=== PATIENT | female | born 1990 | race Caucasian/White ===

== ENCOUNTER 2016-09-04 03:12 | Emergency (ER) | payer OTHER ==
[2016-09-04 03:45] VITALS: TEMP 97.9; BMI 21.9
--- NOTE | 2016-09-04 03:56 | PDOC ---
History of Present Illness - History of Present Illness Initial Comments: 09/04/16 06:01 The patient is a 25 year old female with a PMHx of profound MR, convulsive epilepsy, scoliosis, esophagitis who presents to the ED sent from [facility] for possible obstruction. Patient complained of abdominal pain. Vaccines are UTD, vitals were normal. No fever. <Yeimy Lawson - Last Filed: 09/04/16 06:01> <Eloisa Montesinos - Last Filed: 09/04/16 07:09> <Mickie Robles - Last Filed: 09/04/16 11:58> - General Chief Complaint: Pain, Acute Stated Complaint: PAIN Time Seen by Provider: 09/04/16 03:55 Past History <Yeimy Lawson - Last Filed: 09/04/16 06:01> - Past Medical History GI Disorders: Yes (GERD) Seizures: Yes - Psycho/Social/Smoking Cessation Hx Suicidal Ideation: No Smoking Status: No Smoking History: Never smoked Have you smoked in the past 12 months: No Number of Cigarettes Smoked Daily: 0 Information on smoking cessation initiated: No Hx Alcohol Use: No Drug/Substance Use Hx: No <Eloisa Montesinos - Last Filed: 09/04/16 07:09> <Mickie Robles - Last Filed: 09/04/16 11:58> - Past Medical History Allergies/Adverse Reactions: Allergies Allergy/AdvReac Type Severity Reaction Status Date / Time lactose Allergy Verified 09/04/16 08:40 Home Medications: Ambulatory Orders Calcium Carbonate/Vitamin D3 [Oystercal-D 500 mg-400 Unit Tb] 1 each PO DAILY Carbamazepine [Carbamazepine ER] 200 mg PO BID 09/04/16 Carbamazepine [Carbamazepine ER] 300 mg PO BID 09/04/16 Cholecalciferol (Vitamin D3) [Vitamin D3] 2,000 unit PO DAILY 09/04/16 Clotrimazole [Lotrimin 1% Solution -] 1 applic TP BID 09/04/16 Diazepam [Diastat Acudial] 1 each RC PRN PRN 09/04/16 Docusate Calcium 300 mg PO DAILY 09/04/16 Fructooligosaccharides/Polydex [Fiber-Stat 15 gm/30 ml Liquid] 15 gm PO DAILY 02 /25/17 Lactulose 10 gm PO DAILY 09/04/16 Multivitamin with Iron [Daily Pat with Iron] 1 each PO DAILY 09/04/16 Ranitidine [Zantac -] 150 mg PO BID 09/04/16 Sennosides [Senna Concentrate] 25.8 mg PO HS 09/04/16 Simethicone [Gas Relief] 40 mg PO TID 09/04/16 Topiramate [Topiramate ER] 50 mg PO BID 09/04/16 Review of Systems - Review of Systems Able to Perform ROS?: No (MR) <RennyYeimy A - Last Filed: 09/04/16 06:01> *Physical Exam - Vital Signs Last Vital Signs Temp Pulse Resp BP Pulse Ox 97.9 F 98 H 18 126/74 100 09/04/16 03:43 09/04/16 03:43 09/04/16 03:43 09/04/16 03:43 09/04/16 03:43 - Physical Exam Comments: 09/04/16 06:01 GENERAL: Awake, alert, and fully oriented, in no acute distress HEAD: No signs of trauma EYES: PERRLA, EOMI, sclera anicteric, conjunctiva clear ENT: Auricles normal inspection, hearing grossly normal, nares patent, oropharynx clear without exudates. Moist mucosa NECK: Normal ROM, supple, no lymphadenopathy, JVD, or masses LUNGS: Breath sounds equal, clear to auscultation bilaterally. No wheezes, and no crackles HEART: Tachycardic rate and regular rhythm, normal S1 and S2, no murmurs, rubs or gallops ABDOMEN: Soft, nontender, normoactive bowel sounds. No guarding, no rebound. No masses EXTREMITIES: Normal range of motion, no edema. No clubbing or cyanosis. No cords, erythema, or tenderness NEUROLOGICAL: Cranial nerves II through XII grossly intact. Normal speech, normal gait SKIN: Warm, Dry, normal turgor, no rashes or lesions noted. <Yeimy Lawson - Last Filed: 09/04/16 06:01> - Vital Signs Last Vital Signs Temp Pulse Resp BP Pulse Ox 97.9 F 98 H 18 126/74 100 09/04/16 03:43 09/04/16 03:43 09/04/16 03:43 09/04/16 03:43 09/04/16 03:43 <Eloisa Montesinos - Last Filed: 09/04/16 07:09> - Vital Signs Last Vital Signs Temp Pulse Resp BP Pulse Ox 97.9 F 98 H 18 126/74 100 09/04/16 03:43 09/04/16 03:43 09/04/16 03:43 09/04/16 03:43 09/04/16 03:43 <Mickie Robles - Last Filed: 09/04/16 11:58> ED Treatment Course - LABORATORY CBC & Chemistry Diagram: 09/04/16 09:22 09/04/16 09:22 <Mickie Robles - Last Filed: 09/04/16 11:58> Medical Decision Making - Medical Decision Making 09/04/16 07:09 Pt comes with questionable ileus on an XRAY done at the [facility]. Pt has a normal exam. We are awaiting CT abd/pelvis results. Pt will be signed out to the AM ER doc who will send patient home if her CT is normal. <Eloisa Montesinos - Last Filed: 09/04/16 07:09> - Medical Decision Making 09/04/16 08:48 Exam is very limited as pt has profound MR. Pt is awake and alert. does not appear in distress, smiling at policy writer sales, aide with pt reports no recent vomitting since yesterday. Pt had an xray done at her facility due to vomitting that showed questionable ileus as per Dr Montesinos. Ct done to r/o ileus. No ileus or obstruction noted on ct. Pt is afebrile labs stable, pt stable for dc back to residential facility. 09/04/16 11:57 <Mickie Robles - Last Filed: 09/04/16 11:58> *DC/Admit/Observation/Transfer - Attestations Scribe Attestion: 09/04/16 06:01 Documentation prepared by Yeimy Lawson, acting as medical bill processor for Eloisa Montesinos MD. <Yeimy Lawson - Last Filed: 09/04/16 06:01> <Eloisa Montesinos - Last Filed: 09/04/16 07:09> - Discharge Dispostion Admit: No <Mickie Robles - Last Filed: 09/04/16 11:58> Diagnosis at time of Disposition: Nausea & vomiting - Discharge Dispostion Disposition: HOME Condition at time of disposition: Stable - Patient Instructions Additional Instructions: return to ed for abdominal pain, nausea and vomiting or as needed. Pt to f/u with [facility] in next 24-72hrs
[2016-09-04 09:37] LABS: BASOPHIL 0.5 % (0-2.0); EOSINOPHIL 0.8 % (0-4.5); MCH 30.5 pg (25.7-33.7); MCHC 34.7 g/dl (32.0-36.0); MEAN PLT VOLUME 11.7 fl (7.5-11.1); NEUTROPHILS 75.1 % (42.8-82.8); PLATELET COUNT 218 K/MM3 (134-434); RDW 12.4 % (11.6-15.6); WHITE BLOOD COUNT 10.7 K/mm3 (4.0-10.0)
[2016-09-04 10:03] LABS: ALK PHOS 129 U/L (45-117); ANION GAP 11 (8-16); BILIRUBIN,TOTAL 0.5 mg/dL (0.2-1.0); CALCIUM 9.1 mg/dL (8.5-10.1); CO2 22 mmol/L (21-32); CREATININE 0.5 mg/dL (0.55-1.02); GLUCOSE,RANDOM 81 mg/dL (74-106); SGOT/AST 24 U/L (15-37); SGPT/ALT 30 U/L (12-78); TOT PROT 7.8 g/dl (6.4-8.2)
[2016-09-04 12:36] VITALS: BP 110/67; PULSE 82
== END 2016-09-04 12:36 | disposition home or self-care (01) ==
LOC: JER 03:12
DX: R11.2 Nausea with vomiting, unspecified (principal); F73 Profound intellectual disabilities; G40.909 Epilepsy, unspecified, not intractable, without status epilepticus; K20.8 Other esophagitis; M41.80 Other forms of scoliosis, site unspecified
CPT/HCPCS: 36415; 74176-TC; 80053; 85025; 99282-25

== ENCOUNTER 2017-12-12 17:17 | Emergency (ER) | payer OTHER ==
--- NOTE | 2017-12-12 18:06 | PDOC ---
Rapid Medical Evaluation Time Seen by Provider: 12/12/17 17:58 Medical Evaluation: Allergies Allergy/AdvReac Type Severity Reaction Status Date / Time lactose Allergy Verified 12/12/17 17:58 12/12/17 18:01 I have performed a brief in-person evaluation of this patient. The patient presents with a chief complaint of: comes from [facility], Severe MR, seizure ( wheelchair bound) concerned about discoloration to both feet- cool and mottled first today. DSP ( [employer]) who works with patient did not reconize any changes with feet Tuesday. Pertinent physical exam findings: pale/ purple/ mottled / bilateral feet, up to ankles , unable to palp pulses. . uncertain start time. I have ordered the following: duplex arterial bilateral The patient will proceed to the ED for further evaluation. 12/12/17 18:10
[2017-12-12 18:14] VITALS: BP 140/64; PULSE 90; BMI 15.5
--- NOTE | 2017-12-12 20:17 | PDOC ---
History of Present Illness - General History Source: Care Provider, Old Records Exam Limitations: Clinical Condition - History of Present Illness Initial Comments: 12/12/17 20:22 The patient is a 27 year old female, a [facility] resident, wheel-chair bound, with a significant PMH profound mental retardation, Rett syndrome, epilepsy, scoliosis who presents to the emergency department with extreme purple discoloration and mild edema to both feet. Feet are cold to touch. History limited secondary to medical conditions as noted above. Allergies: lactose Past surgical history: spinal fusion Achilles tendon lengthening <Cora Teran - Last Filed: 12/12/17 22:25> <Jeannine Chavez - Last Filed: 12/12/17 22:37> - General Chief Complaint: Edema Stated Complaint: BILATERAL LEG DISCOLORATION Time Seen by Provider: 12/12/17 17:58 Past History <Cora Teran - Last Filed: 12/12/17 22:25> - Past Medical History COPD: No Dementia: Yes (Profound mental retardation) GI Disorders: Yes (GERD) Seizures: Yes - Immunization History Immunization Up to Date: Yes - Suicide/Smoking/Psychosocial Hx Smoking Status: No Smoking History: Never smoked Have you smoked in the past 12 months: No Number of Cigarettes Smoked Daily: 0 Hx Alcohol Use: No Drug/Substance Use Hx: No Substance Use Type: None <Jeannine Chavez - Last Filed: 12/12/17 22:37> - Past Medical History Allergies/Adverse Reactions: Allergies Allergy/AdvReac Type Severity Reaction Status Date / Time lactose Allergy Verified 12/12/17 17:58 Review of Systems - Review of Systems Able to Perform ROS?: Yes Comments:: 12/12/17 20:21 CONSTITUTIONAL: Absent: fever, no chills, no fatigue EYES: Absent: visual changes ENT: Absent: ear pain, no sore throat CARDIOVASCULAR: Absent: chest pain, no palpitations RESPIRATORY: Absent: cough, no SOB GI: Absent: abdominal pain, no nausea, no vomiting, no constipation, no diarrhea GENITOURINARY: Absent: dysuria, no frequency, no hematuria MUSKULOSKELETAL: Absent: back pain, no arthralgia, no myalgia Present: Bilateral feet discoloration. SKIN: Absent: rash NEURO: Absent: headache <Cora Teran - Last Filed: 12/12/17 22:25> *Physical Exam - Vital Signs Last Vital Signs Temp Pulse Resp BP Pulse Ox 90 20 140/64 95 12/12/17 17:58 12/12/17 17:58 12/12/17 17:58 12/12/17 17:58 - Physical Exam Comments: 12/12/17 20:20 GENERAL: (+) Alert but non-verbal and non-ambulatory. (+) Petite and thin. (+) Wheel- chair bound. HEENT: Normocephalic, atraumatic. PERRL, EOM intact. CARDIOVASCULAR: Normal S1, S2. Regular rate and rhythm. PULMONARY: Clear to auscultation bilaterally. ABDOMEN: (+) protuberant abdomen. Soft, non-tender. EXTREMITIES: Normal ROM in all four extremities. (+) Extreme erythema to the bilateral feet. DP pulses. SKIN: Warm, dry. (+) Calculus on the digits of her hands. NEUROLOGICAL: No focal neurological deficits. <Cora Teran - Last Filed: 12/12/17 22:25> - Vital Signs Last Vital Signs Temp Pulse Resp BP Pulse Ox 90 20 140/64 95 12/12/17 17:58 12/12/17 17:58 12/12/17 17:58 12/12/17 17:58 <Jeannine Chavez - Last Filed: 12/12/17 22:37> Medical Decision Making - Medical Decision Making 12/12/17 22:08 Imaging: Lower extremities US Reported by: Dr. Shearer Impression: No evidence of occlusions or hemodynamically significant stenoses. <Cora Teran - Last Filed: 12/12/17 22:25> - Medical Decision Making 12/12/17 20:17 Concern for vascular occlusion in this 27-year-old female who presents with cold left foot in extreme purple discoloration to both feet with minimal edema. We'll assess his circulatory insufficiency. Arterial Dopplers pending. Patient resides at [facility]. Past medical history for profound mental retardation, Rett syndrome, epilepsy, scoliosis. Past surgical history spinal fusion Achilles tendon lengthening. 27-year-old female, small stature seated in wheelchair. She does not appear to be agitated and she was reading her hands and mouthing her fingers. Lungs are clear to auscultation. CVS regular rate and rhythm. Abdomen protuberant Extremities both feet are erythematous and cool. Neurologically she is alert, nonverbal, nonambulatory 12/12/17 22:31 Duplex arterial Doppler of lower extremities is negative for any occlusions i SPOKE with Vascular surgeon, Dr. Lencho Rasheed and he has seen this in people who have some autonomic insufficiency and there is no intervention requires -if there were some ulcerations or skin breakdown then these would need treatment but she has none of these Impression skin changes due to autonomic insufficiency, no evidence of arterial occlusions or stenosis. Plan discharge back to [facility] <Jeannine Chavez - Last Filed: 12/12/17 22:37> *DC/Admit/Observation/Transfer - Attestations Scribe Attestion: 12/12/17 20:21 Documentation prepared by Cora Teran, acting as medical record specialist for Jeannine Chavez MD. <Cora Teran - Last Filed: 12/12/17 22:25> <Jeannine Chavez - Last Filed: 12/12/17 22:37> Diagnosis at time of Disposition: Skin abnormalities - Discharge Dispostion Disposition: HOME Condition at time of disposition: Stable - Referrals Referrals: Lencho Rasheed MD [Staff Physician] - - Patient Instructions Printed Discharge Instructions: DI for Peripheral Edema, Unilateral
== END 2017-12-13 00:59 | disposition home or self-care (01) ==
LOC: JER 17:17
DX: L98.8 Other specified disorders of the skin and subcutaneous tissue (principal); F73 Profound intellectual disabilities; F84.2 Rett's syndrome; G40.909 Epilepsy, unspecified, not intractable, without status epilepticus; M41.9 Scoliosis, unspecified; Z99.3 Dependence on wheelchair
CPT/HCPCS: 93925-TC; 99281-25

== ENCOUNTER 2023-12-08 12:07 | Emergency (ER) | payer OTHER ==
[2023-12-08 12:24] VITALS: BP 110/78; PULSE 98; RESP 18; TEMP 97.9; BMI 19.5
[2023-12-08 14:01] LABS: BASO % 0.7 % (0-2.0); HEMATOCRIT 45.8 % (32.4-45.2); HEMOGLOBIN 16.1 GM/dL (10.7-15.3); LYMPH % 20.3 % (8-40); MCH 30.4 pg (25.7-33.7); MCHC 35.1 g/dl (32.0-36.0); MEAN CELL VOLUME 86.7 fl (80-96); MEAN PLT VOLUME 11.4 fl (7.5-11.1); MONO % 10.4 % (3.8-10.2); NEUT % 67.6 % (42.8-82.8); PLATELET COUNT 196 10^3/uL (134-434); RBC 5.28 M/mm3 (3.60-5.2); RDW 13.2 % (11.6-15.6); WHITE BLOOD COUNT 8.3 K/mm3 (4.0-10.0)
[2023-12-08 14:09] LABS: INR 0.93 (0.83-1.09); PROTHROMBIN TIME (PATIENT) 10.5 SEC (9.7-13.0)
[2023-12-08 14:12] LABS: ACTIVATED PTT 32.3 SECONDS (25.2-36.5)
[2023-12-08 14:28] LABS: POTASSIUM 3.9 mmol/L (3.5-5.1)
[2023-12-08 14:31] LABS: ALBUMIN 3.8 g/dl (3.4-5.0); BLOOD UREA NITROGEN 12.8 mg/dL (7-18); MAGNESIUM 2.5 mg/dL (1.8-2.4)
[2023-12-08 14:35] LABS: CREATININE 0.5 mg/dL (0.55-1.3)
[2023-12-08 14:36] LABS: BILIRUBIN,TOTAL 0.6 mg/dL (0.2-1); TOT PROT 7.1 g/dl (6.4-8.2)
[2023-12-08] MEDS: SODIUM CHLORIDE 0.9% 500 ML INFUS.BAG IV ONE (17:38)
[2023-12-08 18:17] LABS: EPI CELLS >36 /uL (0-25.1); HYALINE CASTS 1 /uL (0-3.1); PH,URINE 8.5 (5.0-8.0); URINE APPEARANCE CLOUDY; URINE BILIRUBIN NEGATIVE (NEGATIVE); URINE COLOR YELLOW; URINE GLUCOSE (UA) NEGATIVE (NEGATIVE); URINE KETONE TRACE (NEGATIVE); URINE LEUK ESTERASE NEGATIVE (NEGATIVE); URINE NITRITE NEGATIVE (NEGATIVE); URINE PROTEIN 1+ (NEGATIVE); URINE RBC 437 /uL (0-23.9); URINE WBC 40 /uL (0-25.8)
[2023-12-08 20:21] LABS: URINE BACTERIA 184.2 /uL (0-1359)
== END 2023-12-08 19:55 | disposition home or self-care (01) ==
LOC: JER 12:07
DX: Z04.3 Encounter for examination and observation following other accident (principal); W19.XXXA Unspecified fall, initial encounter
CPT/HCPCS: 36415; 70450-TC; 71045-TC-FY; 72125-TC; 72170-TC-FY; 80053; 81003; 83735; 84484; 84703; 85025; 85610; 85730; 86850; 86900; 86901; 87086; 93005; 93010; 99285-25

== ENCOUNTER 2024-03-29 13:47 | Emergency (ER) | payer OTHER ==
[2024-03-29 14:41] VITALS: BMI 19.2
[2024-03-29] MEDS: SODIUM CHLORIDE 1,000 ML IV SCH (18:45)
[2024-03-29 18:53] VITALS: BP 108/69; PULSE 70; RESP 20; TEMP 98.2
[2024-03-30] MEDS ORDERED: ENOXAPARIN NA (PORCINE) 40 MG/0.4 ML DISP.SYRIN SQ SCH (10:00)
== END 2024-03-29 19:49 ==
LOC: JER 13:47
PROC: 0D20XUZ Change Feeding Device in Upper Intestinal Tract, External Approach (ICD-10-PCS; principal; 2024-03-29)
DX: K94.23 Gastrostomy malfunction (principal)
CPT/HCPCS: 49440; 82962; 99282-25

== ENCOUNTER 2024-09-23 18:38 | Inpatient (IN) | payer OTHER ==
[2024-09-23] MEDS ORDERED: ACETAMINOPHEN INJECTION 100 ML ONE (19:20)
[2024-09-23] MEDS ORDERED: PIPERACILLIN/TAZOB 4.5 GM 4.5 GM in DEXTROSE 5%-WATER 100 ML IVPB ONE (19:21)
[2024-09-23] MEDS: SODIUM CHLORIDE 0.9% 500 ML INFUS.BAG IV ONE ×2 (19:44→21:05)
[2024-09-23] MEDS: ACETAMINOPHEN 1000 MG/100 ML BAG IVPB ONE (19:44)
[2024-09-23] MEDS ORDERED: PIPERACILLIN/TAZOB 3.375 GM 3.375 GM/50 ML BAG IVPB ONE (19:50)
[2024-09-23 19:51] LABS: BASO % 0.1 % (0-2.0); EOS % 0.7 % (0-4.5); HEMATOCRIT 41.1 % (32.4-45.2); HEMOGLOBIN 14.2 GM/dL (10.7-15.3); MCH 30.7 pg (25.7-33.7); MCHC 34.4 g/dl (32.0-36.0); MEAN CELL VOLUME 89.2 fl (80-96); MEAN PLT VOLUME 10.5 fl (7.5-11.1); MONO % 10.8 % (3.8-10.2); NEUT % 85.4 % (42.8-82.8); PLATELET COUNT 156 10^3/uL (134-434); RBC 4.61 M/mm3 (3.60-5.2); RDW 12.8 % (11.6-15.6); VENOUS BASE EXCESS -3.9 mmol/L (-2-2); VENOUS O2 SATURATION 91.6 % (70-80); VENOUS PH 7.432 (7.310-7.410); WHITE BLOOD COUNT 16.1 K/mm3 (4.0-10.0)
[2024-09-23 19:58] LABS: INR 1.11 (0.83-1.09); PROTHROMBIN TIME (PATIENT) 12.2 SEC (9.7-13.0)
[2024-09-23 20:01] LABS: ACTIVATED PTT 28.3 SECONDS (25.2-36.5)
[2024-09-23] MEDS: PIPERACILLIN/TAZOB 3.375 GM 3.375 GM in DEXTROSE 5%-WATER - 50 ML IVPB ONE (20:02)
[2024-09-23] MEDS ORDERED: VANCOMYCIN 1 GM PREMIX (F) 1 GM/200 ML BAG ONE (20:06)
[2024-09-23 20:11] LABS: POTASSIUM 3.5 mmol/L (3.5-5.1)
[2024-09-23 20:13] LABS: BLOOD UREA NITROGEN 15.5 mg/dL (7-18); CALCIUM 8.7 mg/dL (8.5-10.1)
[2024-09-23 20:17] LABS: CREATININE 0.7 mg/dL (0.55-1.3)
[2024-09-23 20:18] LABS: BILIRUBIN,TOTAL 0.8 mg/dL (0.2-1); TOT PROT 6.7 g/dl (6.4-8.2)
[2024-09-23 20:21] LABS: EPI CELLS 16 /uL (0-25.1); HYALINE CASTS 2 /uL (0-3.1); URINE APPEARANCE TURBID; URINE BACTERIA >9,000 /uL (0-1359); URINE BILIRUBIN NEGATIVE (NEGATIVE); URINE COLOR DK YELLOW; URINE GLUCOSE (UA) 3+ (NEGATIVE); URINE KETONE TRACE (NEGATIVE); URINE LEUK ESTERASE 3+ (NEGATIVE); URINE NITRITE POSITIVE (NEGATIVE); URINE PROTEIN 2+ (NEGATIVE); URINE WBC 2263 /uL (0-25.8)
[2024-09-23] MEDS: VANCOMYCIN 1,000 MG in DEXTROSE 5%-WATER - 250 ML IVPB ONE (20:29)
[2024-09-23 20:38] LABS: ALBUMIN 3.3 g/dl (3.4-5.0); LACTIC ACID 2.7 mmol/L (0.4-2.0)
[2024-09-23] MEDS: LACTATED RINGERS SOLUTION 1,000 ML IV STA (22:30)
[2024-09-23] MEDS ORDERED: MAG HYDROX/AL HYDROX/SIMETH 30 ML UNIT-DOSE CUP GT PRN (23:50)
[2024-09-24] MEDS: PIPERACILLIN/TAZOB 3.375 GM 3.375 GM in DEXTROSE 5%-WATER - 50 ML IVPB SCH (04:16)
[2024-09-24] MEDS: LACTATED RINGERS SOLUTION 1,000 ML/1,000 ML INFUS.BAG IV SCH (04:16)
[2024-09-24] MEDS ORDERED: SIMETHICONE 40 MG/0.6 ML BOTTLE GT PRN (04:48)
[2024-09-24] MEDS ORDERED: ACETAMINOPHEN 1000 MG/100 ML BAG IVPB PRN (04:49)
[2024-09-24 08:45] LABS: HEMATOCRIT 32.5 % (32.4-45.2); HEMOGLOBIN 10.8 GM/dL (10.7-15.3); MCH 30.7 pg (25.7-33.7); MCHC 33.2 g/dl (32.0-36.0); MEAN CELL VOLUME 92.5 fl (80-96); MEAN PLT VOLUME 10.7 fl (7.5-11.1); PLATELET COUNT 125 10^3/uL (134-434); RBC 3.51 M/mm3 (3.60-5.2); RDW 13.3 % (11.6-15.6); WHITE BLOOD COUNT 12.4 K/mm3 (4.0-10.0)
[2024-09-24 09:05] LABS: POTASSIUM 3.7 mmol/L (3.5-5.1)
[2024-09-24 09:11] LABS: BLOOD UREA NITROGEN 9.6 mg/dL (7-18); MAGNESIUM 2.4 mg/dL (1.8-2.4)
[2024-09-24 09:13] LABS: ALBUMIN 2.5 g/dl (3.4-5.0); CALCIUM 7.2 mg/dL (8.5-10.1)
[2024-09-24 09:14] LABS: BILIRUBIN,TOTAL 0.8 mg/dL (0.2-1); CREATININE 0.5 mg/dL (0.55-1.3); PHOSPHOROUS 1.8 mg/dL (2.5-4.9)
[2024-09-24 09:15] LABS: TOT PROT 5.2 g/dl (6.4-8.2)
[2024-09-24] MEDS: ENOXAPARIN NA (PORCINE) 40 MG/0.4 ML DISP.SYRIN SQ SCH (09:33)
[2024-09-24] MEDS: DOCUSATE NA 100 MG/10 ML UNIT-DOSE CUPS GT SCH (09:34)
[2024-09-24] MEDS: cloBAZam 10 MG TABLET GT SCH (09:34)
[2024-09-24] MEDS: POLYETHYLENE GLYCOL (HEALTHYLAX) 3350 17 GM PACKET GT SCH (09:34)
[2024-09-24] MEDS ORDERED: CEFTRIAXONE 1 G/50 ML PREMIX 50 ML IVPB SCH (10:00)
[2024-09-24 12:27] VITALS: BMI 15.2
[2024-09-24] MEDS ORDERED: VANCOMYCIN ORAL SOLUTION 125 MG/2.5 ML PO SCH (13:00)
[2024-09-24] MEDS: VANCOMYCIN ORAL SOLUTION 125 MG/2.5 ML GT SCH (13:11)
[2024-09-24] MEDS: MINERAL OIL/PET HY-PHL TOPICAL OINTMENT 454 GM JAR TP SCH (14:25)
[2024-09-24] MEDS: PIPERACILLIN/TAZOB 3.375 GM 50 ML IVPB SCH (17:48)
[2024-09-24] MEDS: SENNOSIDES 8.8 MG/5 ML SYRUP GT SCH (22:56)
[2024-09-24] MEDS: TOPIRAMATE 25 MG TABLET GT SCH (22:58)
[2024-09-24] MEDS: NAPH,MB-DB/K PH,MBDB POWDER PACKET PO SCH (22:58)
[2024-09-25 12:06] LABS: POTASSIUM 3.3 mmol/L (3.5-5.1)
[2024-09-25 12:09] LABS: ALBUMIN 2.5 g/dl (3.4-5.0); BLOOD UREA NITROGEN 9.4 mg/dL (7-18)
[2024-09-25 12:11] LABS: CALCIUM 8.5 mg/dL (8.5-10.1)
[2024-09-25 12:12] LABS: PHOSPHOROUS 1.8 mg/dL (2.5-4.9)
[2024-09-25 12:13] LABS: CREATININE 0.4 mg/dL (0.55-1.3)
[2024-09-25 12:14] LABS: BILIRUBIN,TOTAL 0.5 mg/dL (0.2-1); TOT PROT 5.6 g/dl (6.4-8.2)
[2024-09-25 12:19] LABS: BASO % 0.2 % (0-2.0); EOS % 0.6 % (0-4.5); HEMATOCRIT 35.2 % (32.4-45.2); HEMOGLOBIN 12.5 GM/dL (10.7-15.3); LYMPH % 10.1 % (8-40); MCH 31.7 pg (25.7-33.7); MCHC 35.6 g/dl (32.0-36.0); MEAN CELL VOLUME 89.1 fl (80-96); MEAN PLT VOLUME 11.3 fl (7.5-11.1); MONO % 15.6 % (3.8-10.2); NEUT % 73.5 % (42.8-82.8); PLATELET COUNT 141 10^3/uL (134-434); RBC 3.95 M/mm3 (3.60-5.2); WHITE BLOOD COUNT 8.8 K/mm3 (4.0-10.0)
[2024-09-26] MEDS ORDERED: PIPERACILLIN/TAZOB 3.375 GM 50 ML IVPB SCH (03:00)
[2024-09-26 09:50] LABS: POTASSIUM 3.6 mmol/L (3.5-5.1)
[2024-09-26 10:09] LABS: ALBUMIN 2.6 g/dl (3.4-5.0); BLOOD UREA NITROGEN 10.4 mg/dL (7-18); CALCIUM 8.9 mg/dL (8.5-10.1); MAGNESIUM 1.6 mg/dL (1.8-2.4)
[2024-09-26 10:12] LABS: CREATININE 0.4 mg/dL (0.55-1.3); PHOSPHOROUS 4.2 mg/dL (2.5-4.9)
[2024-09-26 10:14] LABS: BILIRUBIN,TOTAL 0.4 mg/dL (0.2-1); TOT PROT 5.9 g/dl (6.4-8.2)
[2024-09-26] MEDS: MAGNESIUM SULFATE IN WATER 2 GM/50 ML IVPB IVPB ONE (13:06)
[2024-09-27 08:54] LABS: POTASSIUM 3.7 mmol/L (3.5-5.1)
[2024-09-27 09:02] LABS: CALCIUM 9.1 mg/dL (8.5-10.1)
[2024-09-27 09:03] LABS: ALBUMIN 2.7 g/dl (3.4-5.0); BLOOD UREA NITROGEN 15.6 mg/dL (7-18); MAGNESIUM 1.9 mg/dL (1.8-2.4)
[2024-09-27 09:04] LABS: BILIRUBIN,TOTAL 0.3 mg/dL (0.2-1)
[2024-09-27 09:06] LABS: CREATININE 0.5 mg/dL (0.55-1.3); PHOSPHOROUS 4.4 mg/dL (2.5-4.9)
[2024-09-27 09:07] LABS: TOT PROT 6.2 g/dl (6.4-8.2)
[2024-09-27] MEDS: NAPH,MB-DB/K PH,MBDB POWDER PACKET GT SCH (09:49)
[2024-09-27] MEDS: CEFTRIAXONE 2 GM-D5W BAG 2 GM/50 ML BAG IVPB SCH (15:45)
[2024-09-28 09:48] LABS: POTASSIUM 3.4 mmol/L (3.5-5.1)
[2024-09-28 09:56] LABS: CALCIUM 9.6 mg/dL (8.5-10.1)
[2024-09-28 09:57] LABS: BLOOD UREA NITROGEN 18.9 mg/dL (7-18)
[2024-09-28 09:59] LABS: CREATININE 0.4 mg/dL (0.55-1.3); PHOSPHOROUS 2.9 mg/dL (2.5-4.9)
[2024-09-28 10:00] LABS: BILIRUBIN,TOTAL 0.3 mg/dL (0.2-1)
[2024-09-28 10:01] LABS: TOT PROT 6.9 g/dl (6.4-8.2)
[2024-09-28] MEDS: TUBE FEED DECLOGGING SOLUTION 12,000 UNITS GT ONE (10:09)
[2024-09-28] MEDS: POTASSIUM CHLORIDE ORAL LIQUID 20 MEQ/15 ML GT ONE (10:31)
[2024-09-29 09:13] LABS: POTASSIUM 3.7 mmol/L (3.5-5.1)
[2024-09-29 09:31] LABS: CALCIUM 9.7 mg/dL (8.5-10.1)
[2024-09-29 09:32] LABS: BLOOD UREA NITROGEN 24.9 mg/dL (7-18); MAGNESIUM 2.3 mg/dL (1.8-2.4)
[2024-09-29 09:33] LABS: ALBUMIN 3.3 g/dl (3.4-5.0)
[2024-09-29 09:34] LABS: CREATININE 0.5 mg/dL (0.55-1.3); PHOSPHOROUS 3.6 mg/dL (2.5-4.9)
[2024-09-29 09:35] LABS: BILIRUBIN,TOTAL 0.3 mg/dL (0.2-1)
[2024-09-29 09:36] LABS: TOT PROT 7.3 g/dl (6.4-8.2)
[2024-09-30] MEDS: SODIUM CHLORIDE 1,000 ML IV SCH (08:45)
[2024-09-30 09:00] LABS: POTASSIUM 4.3 mmol/L (3.5-5.1)
[2024-09-30 09:07] LABS: ALBUMIN 3.6 g/dl (3.4-5.0); PHOSPHOROUS 4.9 mg/dL (2.5-4.9)
[2024-09-30 09:08] LABS: BLOOD UREA NITROGEN 30.7 mg/dL (7-18)
[2024-09-30 09:09] LABS: BILIRUBIN,TOTAL 0.3 mg/dL (0.2-1); TOT PROT 7.9 g/dl (6.4-8.2)
[2024-09-30 09:11] LABS: CALCIUM 9.6 mg/dL (8.5-10.1); CREATININE 0.5 mg/dL (0.55-1.3)
[2024-09-30 09:12] LABS: MAGNESIUM 2.4 mg/dL (1.8-2.4)
[2024-09-30 14:45] VITALS: RESP 18
[2024-09-30 23:25] VITALS: TEMP 97.7
[2024-10-01 13:38] VITALS: BP 100/72; PULSE 92
== END 2024-10-01 13:25 | disposition home or self-care (01) | DRG 720 ==
LOC: JER 18:38 → JERBED 20:26 → J8W 09-24 01:07
PROVIDERS: ADMIT Internal Medicine; ATTEND Nurse Practitioner Acute Care
DX: A41.59 Other Gram-negative sepsis (principal); F84.2 Rett's syndrome; G40.909 Epilepsy, unspecified, not intractable, without status epilepticus; M41.9 Scoliosis, unspecified; K21.9 Gastro-esophageal reflux disease without esophagitis; M81.0 Age-related osteoporosis without current pathological fracture; N39.0 Urinary tract infection, site not specified; R74.01 Elevation of levels of liver transaminase levels; Z93.1 Gastrostomy status; E43 Unspecified severe protein-calorie malnutrition; R53.2 Functional quadriplegia; E87.6 Hypokalemia; L89.611 Pressure ulcer of right heel, stage 1; A04.72 Enterocolitis due to Clostridium difficile, not specified as recurrent; Z68.1 Body mass index [BMI] 19.9 or less, adult
CPT/HCPCS: 0241U-QW; 36415; 71045-TC-FY; 80053; 81003; 82803; 82962; 83605; 83735; 84100; 84484; 85025; 85027; 85610; 85730; 86850; 86900; 86901; 87040; 87086; 87186; 87324; 87449; 87635; 93005; 93010; 99285-25; J0131